=== PATIENT | male | born 1995 | race Caucasian/White ===

== ENCOUNTER 2019-06-10 20:56 | Emergency (ER) | payer BC ==
[~2019-06-10] VITALS: Ht 180.3 cm; Wt 70.3 kg
[2019-06-10 21:06] VITALS: BP 139/89
--- NOTE | 2019-06-10 21:09 | NUR ---
PT SENT TO LOBBY TO WAIT FOR AVAILABLE BED.
--- NOTE | 2019-06-10 21:28 | NUR ---
PT AMBULATED TO BED 4.
--- NOTE | 2019-06-10 21:30 | NUR ---
PT WOUND IRRIGATED WITH NORMAL SALINE
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
[2019-06-10] MEDS ORDERED: BACITRACIN OINT 500 UNITS/GM PKT TP ONE (21:45)
[2019-06-10 22:04] VITALS: BP 139/89
--- NOTE | 2019-06-10 22:04 | NUR ---
Patient discharged with v/s stable. Written and verbal after care instructions given and explained. Patient alert, oriented and verbalized understanding of instructions. Ambulatory with steady gait. All questions addressed prior to discharge. ID band removed. Patient advised to follow up with PMD. Rx of IBUPROFEN AND FEXERIL WAS given. Patient educated on indication of medication including possible reaction and side effects. Opportunity to ask questions provided and answered. PT STATED THAT HIS PAIN DECREASED TO 0/10 PRIOR TO D/C.
== END 2019-06-10 22:04 | disposition home or self-care (01) ==
LOC: MED 20:56
DX: S00.81XA Abrasion of other part of head, initial encounter (principal); Z88.0 Allergy status to penicillin; V47.5XXA Car driver injured in collision with fixed or stationary object in traffic accident, initial encounter; Y93.89 Activity, other specified; Y92.488 Other paved roadways as the place of occurrence of the external cause; Y99.8 Other external cause status
CPT/HCPCS: 99283

== ENCOUNTER 2020-08-20 13:18 | Emergency (ER) | payer BC ==
[~2020-08-20] VITALS: Ht 180.3 cm; Wt 70.3 kg
[2020-08-20 13:34] VITALS: BP 142/88
--- NOTE | 2020-08-20 13:46 | NUR ---
PT AMB TO BED 3. HANDED ON URINE CUP.
--- NOTE | 2020-08-20 14:04 | NUR ---
24 YEAR OLD MALE COMPLAINS OF SOB X FRIDAY. PT ALSO STATES HE HAS CHEST TIGHTNESS, BUT DENIES PAIN. PT DENIES COUGH, N/V/D. PT AOX4, BREATHING EVEN AND UNLABORED, SKIN WARM AND DRY. BED IN LOWEST POSITION, LOCKED, BED RAIL UPX1. PMH - DENIES ALLERGIES - NKA
[2020-08-20 14:58] LABS: BASOPHILS # (AUTO) 0.1 K/uL (0.00-0.22); BASOPHILS % (AUTO) 0.5 % (0.0-2.0); EOSINOPHILS # (AUTO) 0.1 K/uL (0-0.4); EOSINOPHILS % (AUTO) 0.5 % (0.0-4.0); HEMATOCRIT 46.3 % (36-52); HEMOGLOBIN 15.9 g/dL (12.0-18.0); LYMPHOCYTES # (AUTO) 1.7 K/uL (2.0-11.5); LYMPHOCYTES % (AUTO) 14.8 % (20.5-51.1); MEAN CORPUSCULAR HEMOGLOBIN 30 pg (27-31); MEAN CORPUSCULAR HGB CONC 34 g/dL (33-37); MEAN CORPUSCULAR VOLUME 86.4 fL (80-94); MONOCYTES # (AUTO) 0.5 K/uL (0.8-1.0); MONOCYTES % (AUTO) 4.4 % (1.7-9.3); NEUTROPHILS # (AUTO) 9.1 K/uL (1.8-7.7); NEUTROPHILS % (AUTO) 79.8 % (42.2-75.2); PLATELET COUNT (AUTO) 287 K/uL (140-450); RED BLOOD CELL COUNT(AUTO) 5.35 MIL/uL (4.20-6.10); RED CELL DISTRIBUTION WIDTH 12.9 % (11.6-13.7); WHITE BLOOD COUNT (AUTO) 11.4 K/uL (4.8-10.8)
--- NOTE | 2020-08-20 15:00 | NUR ---
PT ALERT AND AWAKE, BREATHING EVEN AND UNLABORED. NO DISTRESS NOTED
[2020-08-20 15:06] LABS: BARBITURATE, URINE NEGATIVE ng/ml (NEG <=200); BENZODIAZEPINE, URINE NEGATIVE ng/mL (NEG <=200); CANNABINOID, URINE NEGATIVE ng/mL (NEG <=50); COCAINE, URINE NEGATIVE ng/mL (NEG <=300); OPIATE, URINE NEGATIVE ng/mL (NEG <=2000); PHENCYCLIDINE SCREEN,URINE NEGATIVE ng/mL (NEG <=25)
[2020-08-20 15:18] LABS: ALBUMIN 4.5 g/dL (3.4-5.0); ANION GAP 13.1 (8-16); CARBON DIOXIDE 26.5 mmol/L (21-32); CREATININE 0.8 mg/dL (0.6-1.3); FREE T4 (FREE THYROXINE) 1.14 ng/dL (0.76-1.46); POTASSIUM 3.6 mmol/L (3.5-5.1); TOTAL BILIRUBIN 1.5 mg/dL (0.0-1.0)
--- NOTE | 2020-08-20 16:00 | NUR ---
PT ALERT AND AWAKE, BREATHING EVEN AND UNLABORED. NO DISTRESS NOTED
[2020-08-20 16:30] LABS: THYROID STIMULATING HORMONE 2.15 uIU/mL (0.34-3.74)
--- NOTE | 2020-08-20 17:30 | NUR ---
Patient discharged with v/s stable. Written and verbal after care instructions about nonspecific tachycardia given and explained. Patient verbalized understanding. Ambulatory with steady gait. All questions addressed prior to discharge. Advised to follow up with PMD.
[2020-08-20 17:34] VITALS: BP 136/87
--- NOTE | 2020-08-20 17:35 | NUR ---
PT ALERT AND AWAKE, BREATHING EVEN AND UNLABORED. NO DISTRESS NOTED
--- NOTE | 2020-08-20 17:35 | NUR ---
Raul hall in EDM - 08/20/20 at 1735 by MEDJJ PT ALERT AND AWAKE, BREATHING EVEN AND UNLABORED. NO DISTRESS NOTED
== END 2020-08-20 17:30 | disposition home or self-care (01) ==
LOC: MED 13:18
DX: R06.02 Shortness of breath (principal); R00.0 Tachycardia, unspecified; Z88.0 Allergy status to penicillin
CPT/HCPCS: 36415; 71045; 80053; 80305; 84439; 84443; 85025; 85379; 93005; 99285; Q0092